=== PATIENT | female | born 1960 | race Caucasian/White ===

== ENCOUNTER → 2022-03-23 10:31 | Outpatient (CLI) | payer OTHER, SELFPAY ==
--- NOTE | ~2022-03-23 | XR_ITS ---
EXAMINATION: XR shoulder RT min 2V DATE: 03/23/2022 10:52 INDICATION: Right shoulder injury and pain. TECHNIQUE: 4 views of right shoulder were obtained. COMPARISON: None. FINDINGS: There is a comminuted fracture of right clavicle involving the distal third. The main dista l fracture fragment demonstrates near-anatomic alignment. The glenohumeral joint is normal. There is mild acromioclavicular joint osteoarthritis. IMPRESSION: 1. Comminuted fracture of distal right clavicle. Reviewed, dictated and finalized at location A.
== END ==
DX: S42.031A Displaced fracture of lateral end of right clavicle, initial encounter for closed fracture (principal); X58.XXXA Exposure to other specified factors, initial encounter
CPT/HCPCS: 73030

== ENCOUNTER → 2022-04-29 10:46 | Outpatient (CLI) | payer OTHER, SELFPAY ==
--- NOTE | ~2022-04-29 | XR_ITS ---
XR clavicle RT DATE: 04/29/2022 10:58 INDICATION: Clavicle fracture follow-up TECHNIQUE: AP and angled AP views of right clavicle COMPARISON: 03/23/2022 right shoulder FINDINGS: There is some bony callus at the nondisplaced fracture of the lateral aspect of the right c lavicular shaft is no interval change in position or alignment. Normal alignment at the acromioclavicular and glenohumeral and bilateral sternoclavicular joints. IMPRESSION: Healing nondisplaced lateral shaft right clavicular fracture Reviewed, dictated and finalized at location B. [employer]
== END ==
PROVIDERS: PCP Physician Assistant Medical; Visit Provider Physician Assistant Medical
DX: S42.001D Fracture of unspecified part of right clavicle, subsequent encounter for fracture with routine healing (principal); X58.XXXD Exposure to other specified factors, subsequent encounter
CPT/HCPCS: 73000